=== PATIENT | male | born 1970 | race African-American/Black ===

== ENCOUNTER 2021-10-26 20:44 | Emergency (ER) | payer OTHER ==
[~2021-10-26] VITALS: Ht 180.3 cm; Wt 77.1 kg
[2021-10-26] MEDS ORDERED: METFORMIN HCL1000 M2 (21:07)
== END 2021-10-26 22:31 | disposition home or self-care (01) ==
LOC: ER 20:44
DX: R11.2 Nausea with vomiting, unspecified (principal); E11.9 Type 2 diabetes mellitus without complications; Z79.84 Long term (current) use of oral hypoglycemic drugs